=== PATIENT | male | born 1970 | race Caucasian/White ===

== ENCOUNTER 2017-05-30 20:28 | Emergency (ER) | payer OTHER ==
[~2017-05-30] VITALS: Ht 180.3 cm; Wt 87.1 kg
[2017-05-30] MEDS ORDERED: TRUVADA 200 MG1 EAC1 ORAL (20:59)
[2017-05-30] MEDS ORDERED: NORVIR100 MG ORAL (20:59)
[2017-05-30] MEDS ORDERED: REYATAZ150 MG ORAL (20:59)
[2017-05-30] MEDS ORDERED: CARVEDILOL6.25 MG ORAL (21:00)
[2017-05-30] MEDS ORDERED: Lidocaine 1% MPF 10mg/ml 5ml IM ONE (21:15)
[2017-05-30] MEDS ORDERED: IBUPROFEN600 MG ORAL (23:02)
[2017-05-30] MEDS ORDERED: ACETAMINOPHEN-1 EAC1 ORAL (23:02)
[2017-05-30 23:08] VITALS: BP 147/91
--- NOTE | 2017-05-31 02:53 | Emergency Room Report ---
History of Present Illness General Chief Complaint: Lower Extremity Injury Source: Patient Present Illness HPI Patient presents with complaints of pain to his left toe Patient injured this about 2 hours prior to arrival when he slipped and fell to the ground There is gross deformity to the toe on the fourth digit Pain is 6/10 Worse with touch or manipulation Denies any fevers or chills denies any ankle pain denies any knee pain Allergies: Coded Allergies: No Known Allergies (Verified Allergy, Mild, 02/24/07) Patient History Past Medical History: see triage record Pertinent Family History: none Reviewed Nursing Documentation: PMH: Agreed, PSxH: Agreed Nursing Documentation-PMH Past Medical History: No History, Except For Review of Systems All Other Systems: negative except mentioned in HPI Physical Exam Vital Signs Date Time Temp Pulse Resp B/P (MAP) Pulse Ox O2 Delivery O2 Flow Rate FiO2 05/30/17 20:54 98.2 96 16 147/91 100 Room Air Sp02 EP Interpretation: reviewed, normal General Appearance: well appearing, no apparent distress Head: normocephalic, atraumatic Eyes: bilateral eye PERRL, bilateral eye EOMI ENT: normal pharynx Respiratory: lungs clear Gastrointestinal: non tender, soft Musculoskeletal: other - Gross deformity to the left fourth toe deviated to the left, neurovascularly intact however no obvious open cuts Neurologic: alert, oriented x3, responsive Skin: normal color, no rash Lymphatic: no adenopathy Procedures Splinting Splinting : Consent: Verbal Location: left foot Pre-Made Type: aircast Hand-Made Type: Splint: postop Pre-Proc Neuro Vasc Exam: normal Post-Proc Neuro Vasc Exam: normal Patient Tolerated: Well Complications: None Progress Ottoniel taping of the toe was performed, along with postop placement Joint Reduction Joint Reduction : Consent: Verbal Joint Reduction Site: other - Fourth digit on the left foot Procedural Sedation: No Reduction Attempts: One Pre-Procedure NV Exam: Yes Post-Procedure NV Exam: Yes Post Joint Reduction Film: joint reduced Patient Tolerated: Well Complications: None Progress Patient's toe was deviated to the left, after local sedation with lidocaine injection, apply traction, and the area did clinically reduce well Medical Decision Making Diagnostic Impression: Primary Impression: toe fracture ER Course Imaging revealed fracture dislocation With this local sedation was performed and reduction was performed Clinically significantly improved alignment Patient had the area splinted as noted above and requires close outpatient podiatry/orthopedic followup Other X-Ray Diagnostic Results Other X-Ray Diagnostic Results : # of Views/Limited Vs Complete: 4 View - left foot Indication: Pain EP Interpretation: Yes Interpretation: no soft tissue swelling, other - Fracture lateral dislocation fourth proximal phalanges, no obvious foreign body Impression: Other - fracture, dislocation fourth digit Interpreting ER Provider: Suri Grey DO Last Vital Signs Date Time Temp Pulse Resp B/P (MAP) Pulse Ox O2 Delivery O2 Flow Rate FiO2 05/30/17 23:08 98.2 16 147/91 100 Room Air 05/30/17 20:54 96 Status: improved Disposition: HOME, SELF-CARE Condition: Improved Scripts Ibuprofen* (MOTRIN*) 600 Mg Tablet 600 MG ORAL Q8H Y for For Pain, #20 TAB 0 Refills Prov: SURI GREY D.O. 05/30/17 Acetaminophen With Codeine (T#3) (TYLENOL #3 TAB*) Y Tab 1 TAB ORAL Q8H Y for For Pain, #12 TAB Prov: SURI GREY D.O. 05/30/17 Referrals: [facility]ERR[facility] (PCP) Patient Instructions: Toe Fracture, [id number], Toe Dislocation, [id number] Additional Instructions: Patient is provided with the discharge instructions notified to follow up with primary doctor in the next 2-3 days otherwise return to the er with any worsening symptoms. Please note that this report is being documented using [employer] technology. This can lead to erroneous entry secondary to incorrect interpretation by the dictating instrument. SURI GREY D.O. May 31, 2017 02:53
--- NOTE | 2017-05-31 11:34 | Diagnostic Imaging Report ---
Indication: Pain Comparison: None Findings: 3 views of the left foot were obtained. There is an fracture involving the distal part of the fourth proximal phalange, probably acute. Please correlate clinically. There is moderate lateral angulation. Impression: Fracture of the fourth proximal phalange
== END 2017-05-30 23:08 | disposition home or self-care (01) ==
LOC: EMR 21:00
DX: S92.512A Displaced fracture of proximal phalanx of left lesser toe(s), initial encounter for closed fracture (principal); W01.0XXA Fall on same level from slipping, tripping and stumbling without subsequent striking against object, initial encounter; Y93.9 Activity, unspecified; Y92.9 Unspecified place or not applicable
CPT/HCPCS: 28515; 64450; 73630; 99284; Z7502

== ENCOUNTER 2019-12-17 12:41 | Emergency (ER) | payer OTHER ==
[~2019-12-17] VITALS: Ht 180.3 cm; Wt 86.2 kg
[~2019-12-17 12:41] MED LIST: ACETAMINOPHEN-1 EAC1 ORAL; CARVEDILOL6.25 MG ORAL; IBUPROFEN600 MG ORAL; NORVIR100 MG ORAL; REYATAZ150 MG ORAL; TRUVADA 200 MG1 EAC1 ORAL
--- NOTE | 2019-12-17 13:03 | Emergency Room Report ---
History of Present Illness General Chief Complaint: Eye Problems Source: Patient Present Illness HPI 49-year-old male with no significant medical history here complaining of bilateral eye pain and irritation x2 days. 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 Denies any photophobia or blurry vision. Complains of yellow discharge from both eyes. Denies any contact lenses. Denies any eye trauma, or chemical exposure to the eye. Has not taken medication for symptom relief. Resting comfortably with stable vital signs. Is afebrile, denies any recent history of travel or coming contact with both of travel. COVID-19 risk:Travel to affect: No Has patient experienced rios: No Allergies: Coded Allergies: No Known Allergies (Verified Allergy, Mild, 02/24/07) Patient History Past Medical History: see triage record Past Surgical History: none Pertinent Family History: none Immunizations: UTD Reviewed Nursing Documentation: PMH: Agreed; PSxH: Agreed Nursing Documentation-PMH Past Medical History: No History, Except For Hx Hypertension: Yes Review of Systems All Other Systems: negative except mentioned in HPI Physical Exam Vital Signs Date Time Temp Pulse Resp B/P (MAP) Pulse Ox O2 Delivery O2 Flow Rate FiO2 12/17/19 12:48 98.2 91 18 143/94 (110) 97 Room Air Sp02 EP Interpretation: reviewed, normal General Appearance: no apparent distress, alert, GCS 15, non-toxic Head: normocephalic, atraumatic Eyes: bilateral eye PERRL, bilateral eye other - Yellow discharge from both eyes as well as conjunctival injection ENT: hearing grossly normal, normal pharynx, no angioedema, normal voice Neck: full range of motion, supple/symm/no masses Respiratory: chest non-tender, lungs clear, normal breath sounds, no rhonchi, no wheezing, speaking full sentences Cardiovascular #1: regular rate, rhythm, no edema, no gallop, no murmur Gastrointestinal: normal bowel sounds, non tender, soft, non-distended, no guarding, no rebound Rectal: deferred Genitourinary: no CVA tenderness Musculoskeletal: back normal Neurologic: alert, motor strength/tone normal, oriented x3, sensory intact, responsive, speech normal Psychiatric: judgement/insight normal, memory normal, mood/affect normal, no suicidal/homicidal ideation Skin: no rash Lymphatic: no adenopathy Medical Decision Making PA Attestation All my diagnosis and treatment plans were reviewed ad discussed with my supervising physician Dr. Dominique Diagnostic Impression: Primary Impression: Bacterial conjunctivitis ER Course 49-year-old male with no significant medical history here complaining of bilateral eye pain and irritation x2 days. 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 Denies any photophobia or blurry vision. Complains of yellow discharge from both eyes. Denies any contact lenses. Denies any eye trauma, or chemical exposure to the eye. Has not taken medication for symptom relief. Resting comfortably with stable vital signs. Is afebrile, denies any recent history of travel or coming contact with both of travel. Ddx considered but are not limited to: bacterial conjunctivitis, allergic conjunctivitis, viral conjunctivitis, periorbital cellulitis, global trauma Vital signs: are WNL, pt. is afebrile H&PE are most consistent with: Bacterial conjunctivitis ORDERS: Ofloxacin ophthalmic ED INTERVENTIONS: None required at this time. DISCHARGE: At this time pt. is stable for d/c to home. Will provide printed patient care instructions, and any necessary prescriptions. Care plan and follow up instructions have been discussed with the patient prior to discharge. Use drops as prescribed, follow-up with primary care provider, avoid rubbing eyes, at this time no further evaluation is needed patient did not have any foreign body exposure. If worsening symptoms return to the emergency room Last Vital Signs Date Time Temp Pulse Resp B/P (MAP) Pulse Ox O2 Delivery O2 Flow Rate FiO2 12/17/19 12:48 98.2 91 18 143/94 (110) 97 Room Air Disposition: HOME, SELF-CARE Condition: Stable Scripts Ofloxacin (Ofloxacin) 5 Ml Drops 2 DROP OP Q6HR for 7 Days, #5 ML Prov: Griselda Mccullough 12/17/19 Patient Instructions: Bacterial Conjunctivitis, [id number] Additional Instructions: Take medication as directed, follow with primary care provider, if worsening symptoms return to the emergency room Griselda Mccullough Dec 17, 2019 13:03
[2019-12-17] MEDS ORDERED: OFLOXACIN10 ML OP (13:04)
--- NOTE | 2019-12-17 13:10 | NUR ---
ER DISCHARGE NOTE: Patient is cleared to be discharged per ERMD, pt is aox4, on room air, with stable vital signs. pt was given dc and prescription instructions, pt was able to verbalize understanding, pt is able to ambulate with steady gait. pt took all belongings.
[2019-12-17 15:08] VITALS: BP 143/94
== END 2019-12-17 13:10 | disposition home or self-care (01) ==
LOC: EMR 13:00
DX: H10.9 Unspecified conjunctivitis (principal); B96.89 Other specified bacterial agents as the cause of diseases classified elsewhere; I10 Essential (primary) hypertension
CPT/HCPCS: 99282